=== PATIENT | female | born 1965 | race Caucasian/White ===

== ENCOUNTER 2019-01-16 14:37 | Day surgery (SDC) | payer BC ==
[~2019-01-16] VITALS: Ht 157.5 cm; Wt 73.9 kg
[2019-01-16] VITALS (15 sets, daily range): BP systolic 108–158; BP diastolic 61–85; PULSE 65–99; RESP 14–25; Ht 157.5 cm; Wt 73.9 kg
[2019-01-16] MEDS ORDERED: LACTATED RINGER'S 1,000 ML IV SCH (15:30)
[2019-01-16] MEDS ORDERED: IOHEXOL 300MG/ML 30 ML BTL ONE (16:25)
--- NOTE | 2019-01-16 17:35 | PREAC ---
Date/Time of Note Date/Time of Note DATE: 01/16/19 TIME: 17:33 Anesthesia Eval and Record Evaluation Time Pre-Procedure Interview DATE: 01/16/19 TIME: 17:33 Age 53 Sex female NPO: 8 hrs Preoperative diagnosis CBD S/p stent Planned procedure ERCP stent removal Past Medical History Past Medical History: Includes GI: Obesity Surgery & Anesthesia Issues No known issue Meds Anticoagulation: No Beta Roman within 24 hr: No Reason Beta Roman not given: Pt. not on B-Roman Current Medications Lactated Ringer's 1,000 ml @ 25 mls/hr Q24H IV ; Start 01/16/19 at 15:30; Status UNV Meds reviewed: Yes Allergies Allergies Reviewed: Yes Labs/Studies Labs Reviewed: Reviewed by anesthesiologist Result Diagram: 01/16/19 1525 01/16/19 1525 Laboratory Tests 01/16/19 15:25 test: Negative Studies: ECG (sr), CXR (nl) Pre-procedure Exam Last vitals Vital Signs Date Temp Pulse Resp B/P (MAP) Pulse Ox O2 O2 Flow FiO2 Time Delivery Rate 01/16/19 97.6 65 16 120/79 97 Room Air 15:35 (93) Airway: Adequate mouth opening Mallampati: Mallampati I Teeth: Normal Lung: Normal Heart: Normal ASA Physical Status ASA physical status: 1 Emergency: None Planned Anesthetic General/MAC: ETT Planned Pain Management Parenteral pain med Pre-operative Attestations Prior to commencing anesthesia and surgery, the patient was re-evaluated, there was verification of: *The patient's identity *The results of appropriate recent lab work and preoperative vital signs *The above evaluation not changing prior to induction *Anesthetic plan, risk benefits, alternative and complications discussed with patient/family; questions answered; patient/family understands, accepts and wishes to proceed. NALDO HARO MD January 16, 2019 17:35
[2019-01-16] MEDS ORDERED: SUCCINYLCHOLINE CHLORIDE 100 MG/5 ML SYG IV ONE (17:39)
[2019-01-16] MEDS ORDERED: PROPOFOL 20 ML ONE (17:39)
[2019-01-16] MEDS ORDERED: FENTAnyl 50 MCG/ML VIAL ONE (17:39)
[2019-01-16] MEDS ORDERED: ONDANSETRON 4 MG INJ ONE (17:40)
[2019-01-16] MEDS ORDERED: METOCLOPRAMIDE 10 MG INJ ONE (17:40)
[2019-01-16] MEDS ORDERED: OXYCODONE/ACETAMINOPHEN (5/325) TAB PO PRN ×2 (18:00)
[2019-01-16] MEDS ORDERED: HYDROmorphONE 1 MG/5 ML IV SYRINGE IV PRN ×3 (18:00)
[2019-01-16] MEDS ORDERED: ONDANSETRON 4 MG INJ IV PRN (18:00)
[2019-01-16] MEDS ORDERED: DIPHENHYDRAMINE 50 MG INJ IV PRN (18:00)
[2019-01-16] MEDS ORDERED: FENTAnyl 50 MCG/ML VIAL IV PRN ×3 (18:00)
[2019-01-16] MEDS ORDERED: MEPERIDINE 25 MG INJ IV PRN (18:00)
--- NOTE | 2019-01-16 18:48 | OPPN ---
Date/Time of Note Date/Time of Note DATE: 01/16/19 TIME: 18:42 Proc Note GI Procedure Date 01/16/19 Indication: diagnostic, treatment Pre-procedure Diagnosis History of bile leak/post biliary stent Post-procedure Diagnosis Impression: Biliary stent removal Normal cholangiogram Plan: Observation Follow up as scheduled Procedure Performed: ERCP (With stent removal) Surgeon see signature line Senior Strategy Analyst none Anesthesia Type: general Tourniquet Time none EBL none Transfusion required none Biopsy 1: None Grafts/Implants none Tubes/Drains none Complication(s) none Disposition: PACU Procedure Description After informed consent, with the patient/relatives understanding the procedure, its indications, potential risks and complications, including but not limited to: allergic reaction, bleeding, perforation or infection, and after all pertinent questions were answered to the patients satisfaction, the patient/relatives signed witnessed informed consent. Following this, premedication was administered slowly IV push under careful cardiovascular and respiratory monitoring with pulse oximetry, automatic blood pressure, and environmental monitoring specialist. Once the sedative effect was achieved the patient was place in the prone position in the radiology special procedures suite; the side viewing panendoscope was introduced and advanced under visual control. Careful examination of the upper gastrointestinal tract, both on insertion as well as withdrawal of the instrument disclosed the following findings: Esophagus: The mucosa of the entire appears within normal limits. There is no evidence of esophagitis, varices, neoplasm or stricture. No Hiatal Hernia identified. Stomach: Upon entrance to the stomach air was insufflated, the gastric cowart distended normally, the mucosa of the fundus, body and antrum of the stomach was carefully examined both head-on and on retroflexion, and shows no abnormalities. There is no evidence of gastritis, ulcers, or neoplasm. Pylorus: The pylorus appears patent and within normal limits, with no evidence of gastric outlet obstruction. Duodenum: The duodenal mucosa was carefully examined in the duodenal bulb as well as the second portion of the duodenum and appears unremarkable with no evidence of duodenitis, ulcer or neoplasm. Ampulla of vater: The ampulla of Vater was identified and carefully examined a stent was present. The staent was secured with polypectomy snare and retrieved without difficulty. Cannulation: At this point cannulation was accomplished with the following fluoroscopic findings: Pancreatogram: Not obtained Cholangiogram: Normal post cholecystectomy cholangiogram The instrument was then withdrawn the patient tolerated the procedure well and was transfer out of the endoscopy suite awake, and in good condition to continue to recover under observation. Copies To: CC: AMY RUIZ MD ; AMY RUIZ MD January 16, 2019 18:48
--- NOTE | 2019-01-17 09:00 | PAC ---
Date/Time of Note Date/Time of Note DATE: 01/17/19 TIME: 09:00 Post-Anesthesia Notes Post-Anesthesia Note Last documented vital signs Vital Signs Date Temp Pulse Resp B/P (MAP) Pulse Ox O2 O2 Flow FiO2 Time Delivery Rate 01/16/19 98.2 78 23 132/79 97 Room Air 19:41 (96) 01/16/19 8.0 18:41 01/16/19 98.2 18:36 Activity: WNL Respiratory function: WNL Cardiovascular function: WNL Mental status: Baseline Pain reasonably controlled: Yes Hydration appropriate: Yes Nausea/Vomiting absent: No NALDO HARO MD January 17, 2019 09:00
== END 2019-01-16 19:57 | disposition home or self-care (01) ==
LOC: GIL 14:37 → SDS 14:37 → GIL 19:57
PROVIDERS: ATTEND Internal Medicine Gastroenterology
DX: Z46.59 Encounter for fitting and adjustment of other gastrointestinal appliance and device (principal)
CPT/HCPCS: 43275; 71045; 74330; 80053; 85025; 85610; 85730; 93005; J2405; J2765; J3010; Q9967; Z7512; Z7610